=== PATIENT | male | born 1990 | race Caucasian/White ===

== ENCOUNTER 2020-02-14 13:29 | Outpatient (CLI) | payer OTHER, SELFPAY ==
[2020-02-15 09:42] LABS: Rapid Plasma Reagin Non-Reactive (NonReactive)
== END 2020-02-14 13:30 | disposition home or self-care (01) ==
LOC: ANHLAB 13:34
PROVIDERS: PCP Family Medicine; Visit Provider Physician Assistant
DX: R21 Rash and other nonspecific skin eruption (principal)
CPT/HCPCS: 36415; 86592